=== PATIENT | female | born 1950 | race Two or more races ===

== ENCOUNTER 2024-07-01 08:42 | Day surgery (SDC) | payer OTHER, SELFPAY ==
--- OUTSIDE RECORDS SUMMARY | 2024-04-25 08:38 | XMS_ITS | Data Portability ---
Author Organization [employer] Address [address] [place] [phone] Care Team Providers Care Political Director Name Role Phone [facility] Referring Provider Assessment Encounter Date Assessment Date Assessment LastModified by Organization Details LastModified Time 02/15/2022 02/15/2022 I provided real -time medical direction via phone for this encounter, and was available for additional phone based assistance as needed. I have reviewed and agree with the Assessment and Plan as documented by the Household Refrigeration Mechanic. Daughter present - advised need to go to the ER for CT brain r/o stroke- has hTN and right sided weakness - daughter/patient declined - concerned that will regress as she always does with ER visits. Said would consider brining in the AM. Medic inquired re meds incl anticoagulants- daughter did not know, yet med list includes xarelto in [facility], Advised f/u with pcp( has already placed call) also advised if have any worsening of s/s to call 911. I requested CRC to reach out to CP and f/u w/ patient tomorrow am if does not go to ED for CT scan [email or web address] Not available 02/15/2022 17:21:12 06/08/2022 06/08/2022 I provided real -time medical direction via phone for this encounter, and was available for additional phone based assistance as needed. I have reviewed and agree with the Assessment and Plan as documented by the Household Refrigeration Mechanic. Patient / daughter given the opportunity to ask questions. Advised if develops CP/severe SOB/turning blue/ AMS/ syncope/ hi fever to call 911- otherw. to f/u with pcp w/ in 48 hrs verbalized understanding of instructions [email or web address] Not available 06/08/2022 22:24:12 09/08/2022 09/08/2022 I provided real -time medical direction via phone for this encounter, and was available for additional phone based assistance as needed. I have reviewed and agree with the Assessment and Plan as documented by the Household Refrigeration Mechanic. Patient / daughter given the opportunity to ask questions. I requested the medic advise if develops CP/severe SOB/turning blue/severe abd pain/uncontrolle d n/v/d or black/bloody emesis or stool/ AMS/ syncope/ hi fever to call 911- otherw f/u with pcp tomorrow- they verbalized understanding of instructions to the medic [email or web address] Not available 09/08/2022 11:16:48 Plan of Treatment Reminders Order Date Submit Date Provider Last Modified By Organization Details Last Modified Time Details Appointments None recorded. Lab rapid SARS CoV 2 Ag, QL IA, respiratory specimen 2022 023 [email or web address] 0 [facility], [address] [place] [address], [phone], 3 14:43:37 rapid flu (A+B) 2022 023 [email or web address] 0 [facility], [address] [place] [address], [phone], 3 14:43:36 Referral None recorded. Procedures None recorded. Surgeries None recorded. Imaging None recorded. Medication Orders ipratropium 0.5 mg-albutero l 3 mg (2.5 mg base)/3 mL nebulizatio n soln 2022 023 [id number], [address] [place], [place], [phone], 3 11:09:26 ipratropium 0.5 mg-albutero l 3 mg (2.5 mg base)/3 mL nebulizatio n soln 2022 023 [email or web address] 0 Not available 14:42:03 albuterol sulfate 2.5 mg/3 mL (0.083 %) solution for nebulizatio n 2022 023 [email or web address] 0 Not available 3 14:42:03 prednisone 20 mg tablet 2022 023 [facility][id number], [address] [facility], [place], [place], [phone], 3 14:42:19 prednisone 20 mg tablet 2022 023 [email or web address] 0 Not available 14:42:03 doxycycline hyclate 100 mg capsule 2022 023 [facility] #[id number], [address] [facility], [place], [place], [phone], 14:42:15 doxycycline hyclate 100 mg capsule 2022 023 [email or web address] 0 Not available 14:42:03 Patient TargetsNo targets recorded. Patient InstructionsNo instructions recorded. Reason for Referral None Reported. Results Created Date Observation Date Name Description Value Unit Range Abnormal Flag Note LastModifiedBy Organization Detail LastModifiedTime 06/09/1906/08/2022 rapid flu (A+B) Flu negati ve Not Available [facility] ed [address] [place] [address], [phone], 06/08/2022 14:42:46 06/09/19 23 06/08/2022 rapid SARS CoV 2 Ag, QL IA, respi rator y speci men rapid SARS CoV 2 Ag, QL IA, respiratory specimen negati ve Not Available [facility] ed [address] [place] [address], [phone], 06/08/2022 14:42:42 Result Notes None recorded. Medical Equipment None Reported. Allergies Allergen ID Allergen Name Allergen Category Reaction Reaction Severity Criticality Documentation Date Start Date Code Code System Note Provider Name and Address Organization Details Recorded Time 2293 aspirin medicatio n Not available Not available Not available 06/08/2022 1191 RxNorm Not Available [facility] - production 4 03:37:22 Medications Name Sig Start Date Stop Date Status Note LastModified by Organization Details LastModified Time mm-brief each t4522 3X (NO 2X IN EXISTS) active Not Available Not Available N ot Available senna tab 8.6mg active Not Available Not Available Not Available senna tablets TAKE 2 TABLET BY MOUTH EVERY NIGHT AT BEDTIME NEEDED active Not Available Not Available No t Available stool softener 100mg capsules TAKE 1 CAPSULE BY MOUTH EVERY DAY NEEDED active Not Available Not Available No t Available Silace 50 mg/5 mL oral liquid TAKE 15ML BY MOUTH ONCE DAILY NEEDED active Not Available Not Available No t Available doxycycline hyclate 100 mg capsule TAKE 1 CAPSULE BY MOUTH TWICE DAILY FOR 9 DAYS active Not Available Not Available No t Available ipratropium 0.5 mg-albuterol 3 mg (2.5 mg base)/3 mL nebulization soln USE 1 VIAL VIA NEBULIZER FOUR TIMES DAILY NEEDED active Not Available Not Available No t Available albuterol sulfate 2.5 mg/3 mL (0.083 %) solution for nebulization 3 ml s/p duo neb 2022 active Not Available Not Available Not Avai lable trazodone 50 mg tablet TAKE 2 TABLETS BY MOUTH EVERY DAY AT BEDTIME NEEDED active Not Available Not Available No t Available cetirizine 10 mg tablet TAKE 1 TABLET BY MOUTH EVERY DAY active Not Available Not Available No t Available levetiraceta m 500 mg tablet TAKE 1 TABLET BY MOUTH EVERY 12 HOURS active Not Available Not Available No t Available albuterol sulfate 1.25 mg/3 mL solution for nebulization 3 ML NEEDED INHALATION EVERY 8 HOURS FOR 30 DAYS active Not Available Not Available No t Available Nystop 100,000 unit/gram topical powder active Not Available Not Available Not Available senna 8.6 mg tablet TAKE 2 TABLETS BY MOUTH DAILY AT BEDTIME active Not Available Not Available N ot Available prednisone 20 mg tablet TAKE 2 TABLETS BY MOUTH EVERY DAY WITH MEALS FOR 4 DAYS active Not Available Not Available No t Available potassium chloride 20 mEq oral packet TAKE 1 PACKET BY MOUTH EVERY DAY active Not Available Not Available No t Available Ear Wax Removal Drops 6.5 % INSTILL 5 DROPS TO AFFECTED EAR TWICE DAILY FOR 4 DAYS active Not Available Not Available No t Available cephalexin 500 mg capsule TAKE 1 CAPSULE BY MOUTH FOUR TIMES DAILY FOR 7 DAYS active Not Available Not Available N ot Available pantoprazole 40 mg tablet,delay ed release active Not Available Not Available N ot Available losartan 25 mg tablet TAKE 1 TABLET BY MOUTH EVERY DAY active Not Available Not Available No t Available docusate sodium 100 mg capsule TAKE ONE CAPSULE BY MOUTH ONCE DAILY FOR 30 DAYS active Not Available Not Available No t Available hydrocortiso ne 2.5 % topical cream APPLY TOPICALLY TO THE SKIN FOUR TIMES DAILY FOR 30 DAYS active Not Available Not Available No t Available mupirocin 2 % topical ointment APPLY TOPICALLY TO THE SKIN FOUR TIMES DAILY FOR 30 DAYS active Not Available Not Available No t Available ergocalcifer ol (vitamin D2) 1,250 mcg (50,000 unit) capsule TAKE 1 CAPSULE BY MOUTH 1 TIME A WEEK active Not Available Not Available Not Available clotrimazole 1 % topical cream APPLY 1 APPLICATION TOPICALLY TO RED AREA AROUND GIVE-TUBE TWICE DAILY active Not Available Not Available Not Available rosuvastatin 10 mg tablet TAKE 1 TABLET BY MOUTH EVERY DAY active Not Available Not Available No t Available glycerin (adult) rectal suppository INSERT 1 SUPPOSITORY RECTALLY NEEDED active Not Available Not Available No t Available Flovent HFA 44 mcg/actuatio n aerosol inhaler INHALE 2 PUFFS BY MOUTH TWICE DAILY active Not Available Not Available No t Available Xarelto 10 mg tablet TAKE 1 TABLET BY MOUTH EVERY DAY active Not Available Not Available No t Available Diaper Rash 40 % topical paste APPLY EXTERNALLY TO THE AFFECTED AREAS 1 TO 2 TIMES A DAY NEEDED active Not Available Not Available No t Available Vitals Date Recorded Body temperature Body height Respiratory rate Heart rate Oxygen saturation Oxygen saturation in Arterial blood by Pulse oximetry Body weight Systolic blood pressure Diastolic blood pressure Provider Name and Address Organization Details Last Updated DateTime 2 98.4 [degF] 162.56 cm 18 /min 66 /min 96 % 96 % 35112.2 4 g 138 mm[Hg] 72 mm[Hg] Not Available [facility] - production 2 12:51:15 Date Recorded Heart rate Oxygen saturation Oxygen saturation in Arterial blood by Pulse oximetry Body temperature Respiratory rate Systolic blood pressure Diastolic blood pressure Provider Name and Address Organization Details Last Updated DateTime 3 81 /min 95 % 95 % 98.2 [degF] 16 /min 144 mm[Hg] 88 mm[Hg] Not Available [facility] - production 3 11:13:06 Date Recorded Body height Provider Name an d Address Organization Details Last Updated DateTime 09/08/2022 162.56 cm Marleen Astudillo [address] [facility],[address], [phone], [employer] 09/08/2022 11:18:11 Date Recorded Oxygen saturation Oxygen saturation in Arterial blood by Pulse oximetry Heart rate Respiratory rate Body temperature Systolic blood pressure Diastolic blood pressure Provider Name and Address Organization Details Last Updated DateTime 3 92 % 92 % 61 /min 20 /min 97.9 [degF] 179 mm[Hg] 80 mm[Hg] Not Available [employer] 3 10:58:59 Date Recorded Oxygen saturation Oxygen saturation in Arterial blood by Pulse oximetry Respiratory rate Heart rate Body temperature Systolic blood pressure Diastolic blood pressure Provider Name and Address Organization Details Last Updated DateTime 3 97 % 97 % 18 /min 80 /min 98.9 [degF] 166 mm[Hg] 90 mm[Hg] Not Available [employer] 3 17:01:55 Date Recorded Oxygen saturation Oxygen saturation in Arterial blood by Pulse oximetry Respiratory rate Heart rate Body temperature Heart rate Respiratory rate Body temperature Oxygen saturation Oxygen saturation in Arterial blood by Pulse oximetry Body weight Systolic blood pressure Diastolic blood pressure Systolic blood pressure Diastolic blood pressure Provider Name and Address Organization Details Last Updated DateTime 3 97 % 97 % 14 /min 77 /min 98.4 [degF] 77 /min 14 /min 98.4 [degF] 97 % 97 % 59527.2 4 g 151 mm[Hg] 76 mm[Hg] 151 mm[Hg] 76 mm[Hg] Not Available [employer] 3 14:45:54 Date Recorded Body weight Body mass index (BMI) Body height Provider Name and Address Organization Details Last Updated DateTime 06/08/2022 06131.32 g 37.8 kg/m2 162.56 cm Wilda Aviles MD [address] [place] [address],[address] [facility], [place], [phone], [employer] 06/08/2022 14:36:05 Social History None recorded. Functional Status None recorded. Mental Status None recorded. Family History Nothing Reported. Medical History No medical history recorded. Gynecological HistoryNo gynecological history recorded. Obstetrics History GPAL:G 0 P 0 0 0 0 Past Encounters Encounter ID Performer Location Encounter Start Date Encounter Closed Date Diagnosis/Indication Diagnosis SNOMED-CT Code Diagnosis ICD10 Code Diagnosis Note [id number] Adryan Casiano MD [facility] - [facility] [address] [place] [phone] 07/12/2021 12:51:08 11/09/2021 16:43:31 Abdominal pain 11022749 R10.9 This 71-year-ol d female had a G-tube removed 6 days ago because her oral intake has been excellent. Since then she has had moderate diffuse abdominal pain and she has also been constipate d. The gastroscop y tract has not healed over and continues to drain clear fluid. She has been using Senna and rectal suppositor ies for the constipati on and she had a small bowel movement today. She was given Toradol 30 mg IM for the pain and she will contact her PCP tomorrow concerning the non-healin g gastrostom y tract. The patient agreed with this plan. Acute dermatitis 1394645 6 L30.9 She has had a localized area of skin break down surroundin g the gastroscop y tract. I recommende d that she apply hydrocorti sone cream 1% bid and cover the area with an absorbent dressing. She will follow up with her PCP. [id number] Wilda Aviles MD [facility] - [facility] [address] [place] [phone] 02/15/2022 17:01:53 02/17/2022 10:52:01 Right hemiparesis 832670296 G81.90 mild but possible new CVA [id number] Wilda Aviles MD [facility] - [facility] [address] [place] [phone] 06/08/2022 14:27:54 06/09/2022 12:29:08 Upper respiratory infection 14587180 J06.9 possible bacterial bronchitis vs pneumonia- still wheezing some after duoneb so given albuterol- feels better: sl rhonchi right base only after 2nd neb/ Vs s/p : BP 152/69; P 91, O2 sat 96 % RA/ has albuterol at home- to continue q 4-6 hr [id number] Wilda Aviles MD [facility] - [facility] [address] [place] [phone] 09/08/2022 11:13:04 09/09/2022 11:03:22 Abdominal pain 27330506 R10.9 No longer nauseated, tolerating p.o. /abdomen currently benign. Advised given prior weight of 220 pounds she can do Tylenol 1 g 3-4 times a day max for pain [id number] Adryan Casiano MD Main - [address] [phone] 01/14/2023 10:58:56 01/14/2023 11:59:41 Chronic bronchitis 18009942 J42 This 72-year-ol d female has chronic bronchitis treated with q4H albuterol nebulizer treatments with some improvemen t. She also takes Mucinex. I added Atrovent solution q4h to her nebulizer treatments . She will follow-up with her PCP. The patient's caregivers agreed with this plan. Health Concerns Section Related Observation LastModified by Organization Detai ls LastModified Time None Recorded Concern Status LastModified by Organization Details LastModified Time None Recorded Advance Directives Directive None Recorded Payers Encounter Date Sequence Insurance Name Policy Number Policy Nix Covered Member ID Nix Member ID Guarantor Name 07/12/2021 1 [facility] - DOS PRIOR TO 2022 - DUAL ELIGIBLE (MEDICARE REPLACEMENT/ADV ANTAGE - HMO) Shana Toth [id number] Shana Toth 02/15/2022 1 [facility] [employer] - DOS PRIOR TO 2022 - DUAL ELIGIBLE (MEDICARE REPLACEMENT/ADV ANTAGE - HMO) Shana Toth [id number] Shana Toth 06/08/2022 1 [facility] - DOS PRIOR TO 2022 - DUAL ELIGIBLE (MEDICARE REPLACEMENT/ADV ANTAGE - HMO) Shana Toth [id number] Shana Toth 09/08/2022 1 [facility] [employer] - DOS ON OR AFTER 2022 - DUAL ELIGIBLE - ASSISTED OPTIONS AND ONE CARE (MEDICARE REPLACEMENT/ADV ANTAGE - HMO) Shana Toth [id number] Shana Toth 01/14/2023 1 [facility] [employer] [employer] - DOS ON OR AFTER 2022 - DUAL ELIGIBLE - ASSISTED OPTIONS AND ONE CARE (MEDICARE REPLACEMENT/ADV ANTAGE - HMO) Shana Toth [id number] Shana Toth Notes Date Note Type Note Provider Name and Address Organization Details Recorded Time 07/12/2021 text/html HPI: Daughter Kirsten calls on behalf of member. Member had a g-tube removed on 07/06 and site has been healing but daughter states the site still leaks and doesn't feel that it is healing enough and would like to have it evaluated. Member has also has some c/o abd pain and constipation. Member is on a bowel regimen of Senna and suppositories prescribed by PCP. Daughter states member had a small bowel movement but that the member's stomach still looks distended. .................... .................... .................... .................... .................... .................... .................... . [facility] Nursing Assessment: Comments: Spoke to jay Curtis who is in agreement with having member seen tomorrow due to time. .................... .................... .................... .................... .................... .................... .................... . Household Refrigeration Mechanic Note: Sent to a call for a pt who has wound at g-tube site and abd pain. SC8 arrives on scene, pt contact made inside bedroom. Pt is lying in semi-lateral position. Pt is bed bound due to paraplegia. Pt is alert and oriented to baseline. Pt's daughter states pt had g tube removed on Monday after having g-tube for 5 years. Pt's daughter states surgical center said wound should close in one week. Wound is leaking fluid and possibly stomach acid per daughter. Area around g-tube site is red and skin is starting to slough around site. Site is itchy and painful. Pt complains of constant abdominal pain. Pt has been given Senna and suppositories for constipation. [facility] orders Toradol 30mg IM for pain. Pt/family is advised to put hydrocortizone cream on site for itching and dress site to soak up fluid. Pt/family advised to contact surgery center and PCP for follow up to assess if site needs to be sutured. Toradol 30mg administered IM without incident. Red flags discussed. Pt and family have no further questions. .................... .................... .................... .................... .................... .................... .................... . Disposition: Fulfilled Adryan Casiano MD [address] [place] [address],[address], [place], [phone], [employer] 07/12/2021 13:03:28 02/15/2022 text/html HPI: Brain Aneurysm, Paralytic syndrome , Chronic idiopathic constipation, Calculus of gallbladder, Nephrolithiasis, Bedridden, Pt has some irritation since the weekend in her right eye. She is also concerned about some facial movements, when the pt speaks only one side of her mouth is moving. Dtr has asked the member is she can feel her touching her face and lips and the member can. She is still eating and in no pain but would like her checked otherwise but does not want to bring her to the ED as she feels that she regresses when she does. .................... .................... .................... .................... .................... .................... .................... . [facility] Nursing Assessment: Comments: Spoke with daughter Kirsten request [facility] visit for speaking from side of her mouth states hx asymmetrical smile at baseline and speech at baseline. x 5 days R eye irritation improving. Deny fever/chills deny headache chest pain or weakness in extremities. This RN recommend to call 911/seek emergent care. Daughter aware of concerns for RED flags ie stroke. Deny ED visit. Agree to red [facility] visit and ?may agree if emergent care is indicated after eval. This Rn discuss concern for safety to wait for medics- verbalize understanding .................... .................... .................... .................... .................... .................... .................... . Household Refrigeration Mechanic Note: Family states they noticed on Monday that Pt has been talking out the left side of her mouth. Family advises that eye irritation is gone after giving Benadryl. Pt has left sided weakness secondary to a stroke years ago. Today she presents with slight right sided weakness. Family advises Pt has been able to eat and drink normally and is in no pain. Pt states she feels good. Family states they just wanted her vitals checked. Family advised that her BP is elevated and that vitals don? t tell us everything we need to know. They were also advised that something more serious could be going on that we are not able to see and would need scans/lab work. Family stated they would take her to ED in the morning. [facility] consulted. Family advised of red flags and that she should be seen sooner rather than later. .................... .................... .................... .................... .................... .................... .................... . Disposition: Fulfilled SEGMD: as above: has hx HTN/ daughter reports prior CVA left her with left sided deficit- non ambulatory. Now has right sided weakness. Only wanted VS and brief exam. No longer has eye s/s- resolved with Benadryl. Wilda Aviles MD [address] [place] [address],[address], [place], [phone], [employer] 02/15/2022 17:21:33 06/08/2022 text/html HPI: Quadriplegia, Intracranial hemorrhage, Brain Aneurysm, Nephrolithiasis. pt is congested, no fever, pt has normal appetite, no running nose, no chest pain, pt is wheezing, dtr has been administered albuterol, but its not working. .................... .................... .................... .................... .................... .................... .................... . [facility] Nursing Assessment: Comments: [facility] RN DID NOT NEED FURTHER INFO SEGMD: coughing up white/ has some mcmahon w/ wheeze- no fever- no CP- no sore throat- Pat has hx COPD/ SPMI per record review as well................ .................... .................... .................... .................... .................... .................... ..... Household Refrigeration Mechanic Note From Guy Arias: Pt reports 3 days of chest congestion and cough producing white sputum. Pt denies CP, SOB, sore throat, ear pn, headaches, f/n/v/d. Pt has COPD and takes albuterol nebs q4-6h prn. Pt is alert, no distress. VSS . Afebrile. Sat 97% room air . Neuro exam normal , paraplegic, bedbound at baseline. Initially pt has diffuse wheezing. Post duoneb and second albuterol neb, rhonchi in right base. POC covid and flu negative. Pt also treated with 40 mg PO prednisone and 100 mg PO doxy. Rx sent to pharmacy . Pt instructed to continue albuterol nebs q4h prn, f/u with PCP, and to seek emergent medical care for new or worsening sx, which are reviewed with her and her daughter. Household Refrigeration Mechanic Allergies: Aspirin .................... .................... .................... .................... .................... .................... .................... . Disposition: Fulfilled Wilda Aviles MD [address] [facility],[address], [place], [phone], [facility] [employer] 06/08/2022 22:24:23 09/08/2022 text/html [facility] Nursing Assessment: Chief Complaints: Nausea/Vomiting PMH: Para or Quadraplegia, Hypertension, Severe Persistent Mental Illness (SPMI), COPD/Asthma Allergies: Aspirin Comments: daughter calling on behalf of member with request for [facility] visit for N/V today. Deny fever/chills Aware visit placed 09/08 Discuss red flags if symptoms progress to seek emergent care-verbalize understanding Verify member name/- .................... .................... .................... .................... .................... .................... .................... . Household Refrigeration Mechanic Note From Ney Guzman: Dispatched to the call address for the female with n/v. Pts daughter states Pt vomited what looked like normal vomit yesterday morning. After that she fed the Pt only soup and broth. Pt vomited 1 more time around 2200. Pt states she has diffuse abd pain but has not vomited since last night and feels ok now. She denies fevers n/v/d, CP, SoB, dizziness, weakness or any cold/flu like symptoms. Pt has eaten breakfast without issue and has been able to maintain PO hydration. Pt was found sitting in bed, CAOx3, airway open and patent, breathing non labored, able to speak in full sentences, -JVD, -HEENT, skin PWD with good turgor, abd soft non tender/distended, +radial pulses, A-febrile, +bowel sounds. [facility] consulted. Red flags discussed. ALL times are approx. .................... .................... .................... .................... .................... .................... .................... . Disposition: Fulfilled Wilda Aviles MD [address] [place] [address],[address] [facility], [place], [address], [employer] 09/08/2022 17:28:45 01/14/2023 text/html HPI: 72 y/o female seen by [facility] on 01/07. Caregiver advised at that time to continue supportive measures (mucinex/albuterol) and call back if symptoms persist. Daughter called PCP office to reports on going symptoms and continue wheezing, cough, chest congestion. Patient is not experiencing fever and there are no sick contacts. .................... .................... .................... .................... .................... .................... .................... . CRC Nursing Assessment: Comments: Reviewed - Kolby RN - Pt requests the visit be rescheduled for 01/14 - Adryan Casiano MD [address] [facility],[address] [facility], [place], [address], [employer] 01/14/2023 11:09:57 OBGyn Episode No OBEpisode recorded.
[2024-06-27 14:56] VITALS: BMI 37.8
[2024-07-01] MEDS: Tetracaine HCl/PF 0.5% Oph Sol 4 ML DROPS 1 DROP EYE-LEFT (10:15)
[2024-07-01] MEDS: Cyclopentolate 1 % Ophth Sol 2 ML DRPBTL 1 DROP EYE-LEFT ×3 (10:17→10:24)
[2024-07-01] MEDS: Tropicamide 1 % Ophth Sol 3 ML BTL 1 DROP EYE-LEFT ×3 (10:18→10:25)
[2024-07-01] MEDS: Ketorolac Tromethamine 0.5% Op 5 ML DROPS 1 DROP EYE-LEFT ×3 (10:19→10:26)
[2024-07-01] MEDS: Phenylephrine HCL 2.5% Oph SoL 2 ML BOTTLE 1 DROP EYE-LEFT ×3 (10:20→10:28)
[2024-07-01 10:22] VITALS: BP 172/84; PULSE 75; RESP 16; TEMP 36.6; O2SAT 95
--- NOTE | 2024-07-01 10:36 | MHC.SHP ---
Pre-Procedural Eval Section A - 24 Hr Update-Section A only Date of Service: 07/01/24 The patient is an INPATIENT: No Changes since office visit: No Cold of Flu in the past 2 weeks, No New Medical Problems, No Changes in Medication and No Patient answered all questions The patient has been examined within 24 hours of the surgical procedure. The History & Physical has been completed within 30 days and I have reviewed it.: Yes Section B - Complete if H&P > 30 days Chief Complaint: Age-related nuclear cataract, left eye Allergies: Allergies Allergy/AdvReac Type Severity Reaction Status Date / Time aspirin Allergy Severe Anaphylaxis Verified 06/27/24 09:47 pancake powder Allergy Severe Anaphylaxis Uncoded 06/27/24 09:47 Plan Diagnosis/Plan: Unchanged I have reviewed the history and physical and performed a pertinent physical examination on my patient. No changes have occurred unless specified. Time Spent With Patient Time: Total time managing care of this patient today ____ minutes.
--- NOTE | 2024-07-01 10:36 | HO.PNOPHT ---
Ophthalmology Procedure Procedure Date of Service: 07/01/24 Ophthalmology Viscoelastic: Healon Duet Dual Pack Pro Ophthalmology Lenses: IOL Acrysof MP - MA60AC (14) Procedure Notes: PREOPERATIVE DIAGNOSIS: Decreased visual acuity left eye secondary to cataract POSTOPERATIVE DIAGNOSIS: Same PROCEDURE: Left cataract extraction with intraocular lens insertion SURGEON: Ney Douglas M.D. ANESTHESIA: Topical ESTIMATED BLOOD LOSS: None COMPLICATIONS: None After obtaining informed consent, the patient was brought to the operation room suite and placed in the supine position. After adequate sedation per anesthesia, topical drops of Tetracaine were given to the left eye. The eye was then prepped and draped in the usual sterile fashion. The operating room microscope was then positioned over the operative eye and a lid speculum placed. A paracentesis was created. Viscoelastic was then instilled into the anterior chamber. A three plane incision was then created temporally, utilizing a 2.85 mm keratome. Capsulotomy forceps were then utilized to create a circular tear capsulotomy. Hydrodissection and hydrodelineation were carried out until adequate mobilization of the nucleus occurred. Phacoemulsification was then utilized to remove the dense central nucleus followed by removal of the cortical material utilizing the automated aspiration irrigation unit. Viscoat elastic was instilled into the posterior capsular bag followed by placement of a posterior chamber intraocular lens without difficulty. The residual Viscoat elastic was then removed utilizing the automated IA machine. The wound was check and found to be watertight. The patient tolerated the procedure well and the lid speculum was removed. Intracameral injection of Vigamox 0.1 mL followed by a subtenon injection of Kenalog-40 0.2 mL were administered. The patient will be seen in the a.m.
[2024-07-01 11:03] VITALS: BP 174/94; PULSE 73; RESP 16; TEMP 36.5; O2SAT 96
== END 2024-07-01 11:13 | disposition home or self-care (01) ==
PROVIDERS: PCP Internal Medicine; Visit Provider Ophthalmology
PROC: (CPT 66985; principal; 2024-07-01 12:00)
DX: H25.12 Age-related nuclear cataract, left eye (principal); H54.7 Unspecified visual loss; H40.1124 Primary open-angle glaucoma, left eye, indeterminate stage; H18.413 Arcus senilis, bilateral; I10 Essential (primary) hypertension; I25.2 Old myocardial infarction; E78.00 Pure hypercholesterolemia, unspecified; J45.909 Unspecified asthma, uncomplicated; Z86.79 Personal history of other diseases of the circulatory system; Z79.01 Long term (current) use of anticoagulants; Z79.899 Other long term (current) drug therapy; Z82.3 Family history of stroke; Z88.6 Allergy status to analgesic agent
CPT/HCPCS: 66984; J2003; J2250; J3301; V2630

== ENCOUNTER 2024-07-15 07:53 | Day surgery (SDC) | payer OTHER, SELFPAY ==
--- OUTSIDE RECORDS SUMMARY | 2024-06-10 16:54 | XMS_ITS | Continuity of Care Document ---
Author Organization [facility] Address [address] [place] [address] Phone Care Team Providers Care Forming Machine Operator Name Role Phone Amy Vitale APN Unavailable Unavailable Allergies, Adverse Reactions, Alerts Substance Reaction Status Criticality No Known Allergies Active No Inform ation Medications Medication Instructions Dosage Effective Dates (start - stop) Status Comments Xarelto 20 mg tablet take 1 tablet by or al route every day with the evening meal 20 MG - Active levetiracetam 500 mg tablet take 1 tablet by oral route 2 times every day for seizure 500 MG - Active levalbuterol 1.25 mg/3 mL solution for nebulization inhale 3 milliliter by nebulization route every 8 hours as needed for asthma 1.25 MG - Active Lomax Choice Nebulizer tid prn - Active budesonide 0.25 mg/2 mL suspension for nebulization inhale 2 milliliter by nebulization route 2 times every day 0.25 MG - Active Procedures Procedure Date Office/outpatient visit,feroz, [facility] 2019 Advance Directives Directive Yes / No Effective Date File Name No Information Encounters Encounter Description Practice Location Reason(s) For Visit Diagnoses Date Provider Office/outpat ient visit,est, [facility], [address] [place], [address], [place] tel:[phone] [facility] Telehealth Visit (chief complaint) Qianaiplegia Iam Reyes. [address] [place], [address], [place]. tel:[phone] [facility] [address] [place], [place], [facility], [place] tel:[phone] S[facility] Adult phone (chief complaint) QuadriplegiaSOB (shortness of breath) Adrianne Morris. [address] [place] [address], [facility], . tel:[phone] [facility], [address] [place] [address], [facility], tel:[phone] [place] Adult No Information Adrianne Morris. [address] [place] [address], [address] [place] [address]. tel:[phone] [facility], [address] [place] [address], [facility], tel:[phone] [place] Adult No Information Adrianne Morris. [address] [place] [address], [facility], . tel:[phone] [facility], [address] [place] [address], [facility], tel:[phone] [facility] No Information Nursing Nursing. [address] [facility], [id number], [place], [place], [facility], . tel:[phone] [facility], [address] [place] [address], [facility], tel:[phone] [facility] Adult power of attornery (chief complaint) MuteQuadriplegia Adrianne Morris. [address] [place] [address], [facility], . tel:[phone] [facility], [address] [place] [address], [facility], tel:[phone] [place] Adult exam (chief complaint) QuadriplegiaHTN, goal below 130/80 Adrianne Morris. [address] [place] [address], [address] [place] [address]. tel:[phone] Family History Family Member Type Diagnosis Age At Onset No Information Payers Payer name Insurance type Covered green party ID Authoriza tifabián(s) [facility] [employer] CI [id number] [facility] [place] [employer] Plan A CI [id number] Social History Type Description Quantity Date Captured Comments Alcohol Use Details No Caffeine Use Details No Tobacco Use Status Current non-smoker Smoking Status Never smoker Sex Female Sexual Orientation Straight or heterosexual Dec Gender Identity Female Chief Complaint And Reason For Visit From encounter dated '01/15/2020 15:00'. Telehealth Visit (chief complaint). Description: The patient/guardian verified name, date of ,address and phone number prior to the start of the Telehealth visit. The patient/guardian agreed tohave telemedicine as part of their medical care. spoke with guardian niece, patient is bedridden and needs refills on medications. Would need a special van to come to appointments as patient is quadriplegic and with pandemic family does not want to risk it. Plan Of Treatment Date Type Action Status Goal Urinalysis . Due on due Goal ECG. Due on due Goal DEXA scan. Due on 0 due Goal Hep B Surface Ab , Quant. Due on due Goal Colonoscopy. Due on due Goal HCV reflex to Qu ant RT PCR. Due on due Goal SBIRT. Due on du e Goal HIV 1/0/2 Ag/Ab With Reflex. Due on due Goal Tdap/Td. Due on due Goal Influenza vaccine. Due on due Goal Lipid panel. Due on due Goal Self-Management Goals. Due o n due Goal Hep B Core Ab, IgM. Due on due Goal Pneumococcal vaccine. Due on due Goal Zoster vaccine (1st). Due on due Goal Functional Statu s Assessment. Due on due Goal Mammogram. Due on 0 due Goal FOBT/FIT. Due on due Goal Colonoscopy. Due on due Goal DEXA scan. Due on 0 due Goal HCV reflex to Qu ant RT PCR. Due on due Goal HIV 1/0/2 Ag/Ab With Reflex. Due on due Goal Functional Statu s Assessment. Due on due Goal SBIRT. Due on du e Goal Self-Management Goals. Due o n due Goal Hep B Core Ab, IgM. Due on due Goal FOBT/FIT. Due on due Goal Tdap/Td. Due on due Goal Influenza vaccine. Due on due Goal Lipid panel. Due on due Goal Mammogram. Due on 0 due Goal Zoster vaccine (1st). Due on due Goal ECG. Due on due Goal Urinalysis . Due on due Goal Hep B Surface Ab , Quant. Due on due Goal Pneumococcal vaccine. Due on due Goal Urinalysis . Due on due Goal ECG. Due on due Goal Colonoscopy. Due on due Goal HIV 1/0/2 Ag/Ab With Reflex. Due on due Goal Self-Management Goals. Due o n due Goal FOBT/FIT. Due on due Goal Functional Statu s Assessment. Due on due Goal DEXA scan. Due on 0 due Goal Lipid panel. Due on due Goal Zoster vaccine (). Due on due Goal Tdap/Td. Due on due Goal Hep B Surface Ab , Quant. Due on due Goal Mammogram. Due on 0 due Goal Hep B Core Ab, IgM. Due on due Goal Influenza vaccine. Due on due Goal HCV reflex to Qu ant RT PCR. Due on due Goal Pneumococcal vaccine. Due on due Goal SBIRT. Due on du e Goal ECG. Due on due Goal Urinalysis . Due on due Goal Zoster vaccine (). Due on due Goal Self-Management Goals. Due o n due Goal FOBT/FIT. Due on due Goal Tdap/Td. Due on due Goal Functional Statu s Assessment. Due on due Goal SBIRT. Due on du e Goal Lipid panel. Due on due Goal Colonoscopy. Due on due Goal Influenza vaccine. Due on due Goal Mammogram. Due on 0 due Goal Hep B Core Ab, IgM. Due on M due Goal HIV 1/0/2 Ag/Ab With Reflex. Due on due Goal Hep B Surface Ab , Quant. Due on due Goal Pneumococcal vaccine. Due on due Goal HCV reflex to Qu ant RT PCR. Due on due Goal DEXA scan. Due on 0 due Future Order: Lab Order CBC w/di ff ([id number]), Ordered on: Ordered Future Order: Lab Order CMP ([id number]), O rdered on: Ordered Future Order: Lab Order Thyroid Panel (T4, T3U, FT4, TSH) ([id number]), Ordered on: Ordered History Of Present Illness Encounter Date Complaint History Of Prese nt Illness Telehealth Visit The patient/josea rdian verified name, date of , address and phone number prior to the start of the Telehealth visit. The patient/guardian agreed to have telemedicine as part of their medical care. spoke with guardian niece, patient is bedridden and needs refills on medications. Would need a special van to come to appointments as patient is quadriplegic and with pandemic family does not want to risk it. phone called and got c onsent to speak over the phoneclear voice and no respiratory distresspatient elder [facility] her grandchildreni spoke with the grand nieceneeds refill of meds power of attornery patient quadr iplegic, not able to speak or communicate verbally or with gesturessupine in stretcher, came with daughter and niece, lives with themcame with documents to be completed certifying her medical conditionrefill medications and prescriptions filled for gauze gloves, vaseline, tapewheelchair and television writer exam post cerebral st roke hemmorraguic, , was in coma and had surgeruies to remove blood, was quadriplegioc, after the first year she got right arm movement weak, after total 2 years post stroke in [place], daughter [place] mother to [place] Instructions Date Instruction Additional Infor marvin Medications refilled. Follow-up within 1 month. Related to Quadriplegia Supportive Care Follow up if symptoms persist or worsen. patient taken by manuel marques to another stateneed list of meds and appointmenst and studies Related to Quadriplegia education, refill me ds, order labs and filled prescriptions, completed document for power of criminal attorney certifying her quadriplegic condition Related to Quadriplegia education, samanta martinez easures, refill seizure prevention, xarelto for dvt prevention, home care, has hospital bed abd diapers Related to Quadriplegia Assessments Type Assessment Date assessment Quadriplegia
[2024-06-27 15:09] VITALS: BMI 37.8
--- NOTE | 2024-07-12 14:25 | P.CONAN_ITS ---
HPI - Anesthesia Eval Consult details Narrative: 74yo F for Right Cataract Extraction IOL Insertion PMFSH Past Medical History Medical History (Updated 06/27/24 @ 14:54 by Kristel Hogan, EMILY) Skin lesion Cataracts, bilateral SAH (subarachnoid hemorrhage) (2017) Seasonal allergies Brain aneurysm (2017) Hx of deep venous thrombosis Dysphagia Impaired cognition Hematuria (05/01/24) Epilepsy HLD (hyperlipidemia) LBBB (left bundle branch block) Mild aortic regurgitation Systolic HF (heart failure) HTN (hypertension) Cardiomyopathy Non-traumatic intracranial hemorrhage (2017) Surgical History Surgical History (Updated 06/27/24 @ 14:55 by Kristel Hogan, RN) Hx of hysterectomy Social History Social History (Updated 06/27/24 @ 14:56 by Kristel Hogan, EMILY) Household Members Other:: daughter Housing: Apartment Are you a primary palliative care nurse practitioner to a significant other at home: No Do you presently have visiting nurse or other home services: Yes (TREASURY ACCOUNTANT 4 hours per day) Comment: bed bound Patient Tobacco Use Status: Never used Tobacco Use of substances other than those prescribed or required for medical reasons: No Advance Directives: No (will bring dos or before) Advance Directives Information Provided: No Advance Directives on File: No Poor oral hygiene: Yes (only 2 upper teeth) Meds Allergies Allergy/AdvReac Type Severity Reaction Status Date / Time aspirin Allergy Severe Anaphylaxis Verified 06/27/24 09:47 pancake powder Allergy Severe Anaphylaxis Uncoded 06/27/24 09:47 Home Medications ?Medication ?Instructions ?Recorded ?Confirmed ?Last Taken ?Type albuterol sulfate 1.25 mg/3 mL 1.25 mg inhalation Q8H PRN 06/27/24 06/27/24 Unknown History solution for nebulization Shortness Of Breath Or Wheezing alendronate 70 mg tablet 70 mg PO QWEEK 06/27/24 06/27/24 Unknown History budesonide 0.5 mg/2 mL suspension 0.5 mg inhalation DAILY MRX1 06/27/24 06/27/24 Unknown History for nebulization calcium carbonate 600 mg PO BID 06/27/24 06/27/24 Unknown History cetirizine 10 mg tablet 10 mg PO DAILY PRN Allergy Symptoms 06/27/24 06/27/24 Unknown History cholecalciferol (vitamin D3) 50 50 mcg PO DAILY 06/27/24 06/27/24 Unknown History mcg (2,000 unit) capsule docusate sodium 100 mg capsule 100 mg PO DAILY PRN Constipation 06/27/24 06/27/24 Unknown History dorzolamide 22.3 mg-timolol 6.8 1 drp ophthalmic (eye) BID 06/27/24 06/27/24 Unknown History mg/mL eye drops losartan 25 mg tablet 25 mg PO DAILY 06/27/24 06/27/24 Unknown History mupirocin 2 % topical ointment topical BID 06/27/24 Unknown History nystatin 100,000 unit/gram topical topical BID 06/27/24 Unknown History powder (Nystop) polyethylene glycol 3350 17 gram 17 g PO Q OTHER DAY 06/27/24 06/27/24 Unknown History oral powder packet rivaroxaban 10 mg tablet (Xarelto) 10 mg PO DAILY 06/27/24 06/27/24 Unknown History rosuvastatin 10 mg tablet 10 mg PO DAILY 06/27/24 06/27/24 Unknown History trazodone 50 mg tablet 100 mg PO BEDTIME PRN Insomnia 06/27/24 06/27/24 Unknown History Exam Height,Weight and Vital Signs: Height 5 ft 4 in Weight 99.79 kg
[2024-07-15 08:43] VITALS: BP 165/80; PULSE 73; RESP 16; TEMP 36.6; O2SAT 94
[2024-07-15] MEDS: Tetracaine HCl/PF 0.5% Oph Sol 4 ML DROPS 1 DROP EYE-RIGHT (08:49)
[2024-07-15] MEDS: Cyclopentolate 1 % Ophth Sol 2 ML DRPBTL 1 DROP EYE-RIGHT ×3 (08:50→08:56)
[2024-07-15] MEDS: Tropicamide 1 % Ophth Sol 3 ML BTL 1 DROP EYE-RIGHT ×3 (08:51→08:57)
[2024-07-15] MEDS: Ketorolac Tromethamine 0.5% Op 5 ML DROPS 1 DROP EYE-RIGHT ×3 (08:52→08:58)
[2024-07-15] MEDS: Phenylephrine HCL 2.5% Oph SoL 2 ML BOTTLE 1 DROP EYE-RIGHT ×3 (08:53→08:59)
--- NOTE | 2024-07-15 09:41 | MHC.SHP ---
Pre-Procedural Eval Section A - 24 Hr Update-Section A only Date of Service: 07/15/24 The patient is an INPATIENT: No Changes since office visit: No Cold of Flu in the past 2 weeks, No New Medical Problems, No Changes in Medication and No Patient answered all questions The patient has been examined within 24 hours of the surgical procedure. The History & Physical has been completed within 30 days and I have reviewed it.: Yes Section B - Complete if H&P > 30 days Chief Complaint: Age-related nuclear cataract, right eye Allergies: Allergies Allergy/AdvReac Type Severity Reaction Status Date / Time aspirin Allergy Severe Anaphylaxis Verified 06/27/24 09:47 pancake powder Allergy Severe Anaphylaxis Uncoded 06/27/24 09:47 Plan Diagnosis/Plan: Unchanged I have reviewed the history and physical and performed a pertinent physical examination on my patient. No changes have occurred unless specified. Time Spent With Patient Time: Total time managing care of this patient today ____ minutes.
--- NOTE | 2024-07-15 09:42 | P.PCNO_ITS ---
Ophthalmology Procedure Procedure Date of Service: 07/15/24 Ophthalmology Viscoelastic: Healon Duet Dual Pack Pro Ophthalmology Lenses: IOL Acrysof MP - MA60AC (15) Procedure Notes: PREOPERATIVE DIAGNOSIS: Decreased visual acuity right eye secondary to cataract POSTOPERATIVE DIAGNOSIS: Same PROCEDURE: Right cataract extraction with intraocular lens insertion SURGEON: Ney Douglas M.D. ANESTHESIA: Topical/MAC ESTIMATED BLOOD LOSS: None COMPLICATIONS: None After obtaining informed consent, the patient was brought to the operating room suite and placed in the supine position. After adequate sedation per anesthesia, topical drops of Tetracaine were given to the right eye. The eye was then prepped and draped in the usual sterile fashion. The operating room microscope was then positioned over the operative eye and a lid speculum placed. A paracentesis was created. Viscoelastic was then instilled into the anterior chamber. A three plane incision was then created temporally, utilizing a 2.85 mm keratome. Capsulotomy forceps were then utilized to create a circular tear capsulotomy. Hydrodissection and hydrodelineation were carried out until adequate mobilization of the nucleus occurred. Phacoemulsification was then utilized to remove the dense central nucl eus followed by removal of the cortical material utilizing the automated aspiration irrigation unit. Viscoelastic was instilled into the posterior capsular bag followed by placement of a posterior chamber intraocular lens without difficulty. The residual Viscoelastic was then removed utilizing the automated IA machine. The wound was checked and found to be watertight. The patient tolerated the procedure well and the lid speculum was removed. Intracameral injection of Vigamox 0.1 mL followed by a subtenon injection of Kenalog-40 0.2 mL were administered. The patient will be seen in the a.m.
[2024-07-15] MEDS: Lactated Ringers 1,000 ML 50 ML IVCONT (10:06)
--- NOTE | 2024-07-15 10:06 | PC.NURSE ---
patient was scheduled as a local procedure then was changed to mac. staff awaiting to go into or room. gave leads to or nurse to apply to the patient. daughter aware of changed plan of care.
--- NOTE | 2024-07-15 10:08 | HO.ANESPROP2 ---
HPI - Anesthesia Eval Consult details Narrative: cataract, req anesth PMFSH Past Medical History Medical History Skin lesion Cataracts, bilateral SAH (subarachnoid hemorrhage) (2017) Seasonal allergies Brain aneurysm (2017) Hx of deep venous thrombosis Dysphagia Impaired cognition Hematuria (05/01/24) Epilepsy HLD (hyperlipidemia) LBBB (left bundle branch block) Mild aortic regurgitation Systolic HF (heart failure) HTN (hypertension) Cardiomyopathy Non-traumatic intracranial hemorrhage (2017) Family History Family history of problems with anesthesia: No Surgical History Surgical History Hx of hysterectomy History of Problems with Anesthesia: No Social History Social History Household Members Other:: daughter Housing: Apartment Are you a primary care specialist to a significant other at home: No Do you presently have visiting nurse or other home services: Yes (BURN OUT TENDER LACE 4 hours per day) Comment: bed bound Patient Tobacco Use Status: Never used Tobacco Use of substances other than those prescribed or required for medical reasons: No Advance Directives: No (will bring dos or before) Advance Directives Information Provided: Yes Advance Directives on File: No Poor oral hygiene: Yes (only 2 upper teeth) Meds Allergies Allergy/AdvReac Type Severity Reaction Status Date / Time aspirin Allergy Severe Anaphylaxis Verified 06/27/24 09:47 pancake powder Allergy Severe Anaphylaxis Uncoded 06/27/24 09:47 Active Medications: Current Medications Lactated Ringer's (Lr) 1,000 mls @ 50 mls/hr IVCONT .Q20H MIKAYLA Last Admin: 07/15/24 10:06 Dose: 50 mls/hr Povidone Iodine (Povidone Iodine 5 % Ophth Soln 30 Ml Bottle) 1 appl EYE-RIGHT PREOP PRN PRN Reason: Pre-Op Surgical Implant Prophy Home Medications ?Medication ?Instructions ?Recorded ?Confirmed ?Last Taken ?Type albuterol sulfate 1.25 mg/3 mL 1.25 mg inhalation Q8H PRN 06/27/24 06/27/24 Unknown History solution for nebulization Shortness Of Breath Or Wheezing alendronate 70 mg tablet 70 mg PO QWEEK 06/27/24 06/27/24 Unknown History budesonide 0.5 mg/2 mL suspension 0.5 mg inhalation DAILY MRX1 06/27/24 06/27/24 Unknown History for nebulization calcium carbonate 600 mg PO BID 06/27/24 06/27/24 Unknown History cetirizine 10 mg tablet 10 mg PO DAILY PRN Allergy Symptoms 06/27/24 06/27/24 Unknown History cholecalciferol (vitamin D3) 50 50 mcg PO DAILY 06/27/24 06/27/24 Unknown History mcg (2,000 unit) capsule docusate sodium 100 mg capsule 100 mg PO DAILY PRN Constipation 06/27/24 06/27/24 Unknown History dorzolamide 22.3 mg-timolol 6.8 1 drp ophthalmic (eye) BID 06/27/24 06/27/24 Unknown History mg/mL eye drops losartan 25 mg tablet 25 mg PO DAILY 06/27/24 06/27/24 Unknown History mupirocin 2 % topical ointment topical BID 06/27/24 Unknown History nystatin 100,000 unit/gram topical topical BID 06/27/24 Unknown History powder (Nystop) polyethylene glycol 3350 17 gram 17 g PO Q OTHER DAY 06/27/24 06/27/24 Unknown History oral powder packet rivaroxaban 10 mg tablet (Xarelto) 10 mg PO DAILY 06/27/24 06/27/24 Unknown History rosuvastatin 10 mg tablet 10 mg PO DAILY 06/27/24 06/27/24 Unknown History trazodone 50 mg tablet 100 mg PO BEDTIME PRN Insomnia 06/27/24 06/27/24 Unknown History Exam Height,Weight and Vital Signs: Height 5 ft 4 in Weight 99.79 kg Last Vital Signs Temp 97.9 F 07/15/24 08:43 Pulse 73 07/15/24 08:43 Resp 16 07/15/24 08:43 BP 165/80 H 07/15/24 08:43 Pulse Ox 94 07/15/24 08:43 O2 Del Method Room Air 07/15/24 08:43 Airway Mallampati Class: Patient Non-Cooperative TM Dist: >3cm Neck ROM: Limited Heart: rrr Lungs: cta Assessment and Plan Assessment Anesthesia Assessment: Anesthesia Plan Discussed and Chart Reviewed Final Anesthetic Review Family History of Problems with Anesthesia: No History of Problems with Anesthesia: No NPO: Yes ASA Class: III Final Preanesthetic Review: No Changes in Pt Med Stat, Meds/Allgs Chart Reviewed, Consent Obtained/Reviewed, Anes Risks/Benef Reviewed and DNR Form (If Appl.) (limited resuc) Patient Risk: High Procedure Risk: Low Anesthetic Plan Anesthetic Plan: MAC: Disposition: Standard PACU
[2024-07-15 10:30] VITALS: BP 159/80; PULSE 78; RESP 12; TEMP 36.1; O2SAT 97
[2024-07-15 10:54] VITALS: BP 178/87; PULSE 84; RESP 18; TEMP 36.4; O2SAT 95
== END 2024-07-15 11:00 | disposition home or self-care (01) ==
PROVIDERS: PCP Internal Medicine; Visit Provider Ophthalmology
PROC: (CPT 66985; principal; 2024-07-15 10:00)
DX: H25.11 Age-related nuclear cataract, right eye (principal); H54.7 Unspecified visual loss; H18.413 Arcus senilis, bilateral; I11.0 Hypertensive heart disease with heart failure; I50.20 Unspecified systolic (congestive) heart failure; I69.819 Unspecified symptoms and signs involving cognitive functions following other cerebrovascular disease; I69.891 Dysphagia following other cerebrovascular disease; I69.898 Other sequelae of other cerebrovascular disease; I25.2 Old myocardial infarction; I42.9 Cardiomyopathy, unspecified; E78.00 Pure hypercholesterolemia, unspecified; G40.909 Epilepsy, unspecified, not intractable, without status epilepticus; J45.909 Unspecified asthma, uncomplicated; Z66 Do not resuscitate; Z79.01 Long term (current) use of anticoagulants; Z79.899 Other long term (current) drug therapy
CPT/HCPCS: 66984; J2250; J3010; J3301; V2630